=== PATIENT | male | born 1955 | race Caucasian/White ===

== ENCOUNTER → 2016-10-25 | Outpatient (CLI) | payer OTHER | LOC: LAB 16:28 | PROVIDERS: ATTEND Urology | DX: C61 Malignant neoplasm of prostate (principal) | CPT/HCPCS: 36415; 84153 ==

== ENCOUNTER → 2017-03-14 | Outpatient (CLI) | payer OTHER | LOC: LAB 13:55 | PROVIDERS: ATTEND Urology | DX: C61 Malignant neoplasm of prostate (principal) | CPT/HCPCS: 36415; 84153 ==

== ENCOUNTER 2017-10-06 21:37 | Inpatient (IN) ==
[2017-10-06] MEDS ORDERED: Sodium Chloride 0.9% 1,000 ML PRIMARY IV ONE (21:49)
[2017-10-06] MEDS ORDERED: MORPHINE SULFATE 4 MG/1 ML IVP ONE ×2 (21:49→23:42)
[2017-10-06] MEDS ORDERED: ONDANSETRON 4 MG/2 ML VIAL IVP ONE (21:49)
[2017-10-06] MEDS ORDERED: NORMAL SALINE 10 ML SYRINGE FLUSH IVP PRN (21:49)
--- NOTE | 2017-10-06 21:56 | EKG ---
[address] [address] Measurements Intervals [place] Rate: 77 P: 29 NV: 135 QRS: 27 QRSD: 100 T: 47 QT: 404 QTc: 436 Interpretive Statements SINUS RHYTHM NONSPECIFIC ST & T-WAVE ABNORMALITY No previous ECG available for comparison Electronically Signed On 10-07-17 09:47:43 MST by Chase Alvarez MD [email or web address]
[2017-10-06 22:15] LABS: BASOPHILS # (AUTO) 0.02 10*3/UL; BASOPHILS % (AUTO) 0.3 % (0-1); EOSINOPHILS % (AUTO) 2.9 % (0-8); Hematocrit [HCT] 43.1 % (42.0-52.0); Hemoglobin [HGB] 14.5 g/dL (14.0-18.0); LYMPHOCYTES # (AUTO) 2.04 10*3/uL; MEAN CORPUSCULAR HGB CONC 33.6 g/dL (33-37); MEAN CORPUSCULAR VOLUME 92.1 FL (80-90); MEAN PLATELET VOLUME 10.4 FL (7.4-12.2); MONOCYTES # (AUTO) 0.72 10*3/UL (0.3-0.8); MONOCYTES % (AUTO) 10.4 % (5-15); NEUTROPHILS # (AUTO) 3.93 10*3/UL; NEUTROPHILS % (AUTO) 56.8 % (50-80); RED BLOOD COUNT 4.68 10^6/uL (4.70-6.10)
[2017-10-06 22:17] LABS: PLATELET MORPHOLOGY COMMENT NORMAL MORPHOLOGY (NORM); RBC MORPHOLOGY COMMENT NORMAL MORPHOLOGY (NORM); WBC MORPHOLOGY COMMENT NORMAL MORPHOLOGY (NORM)
--- NOTE | 2017-10-06 22:18 | PDOC ---
General Adult HPI - General Chief Complaint: Abdomen Pain Stated Complaint: Severe ABD Pain Date Seen by Provider: 10/06/17 Time Seen by Provider: 21:40 Source: POSITIVE: Patient Exam Limitations: POSITIVE: No limitations Nurse's Notes Reviewed & Considered: Yes - History of Present Illness Initial Comment: The patient is a 61-year-old male who presents to the emergency room with abdominal pain. He states that he had onset of abdominal pain and pressure approximately 2 hours ago. He states that he feels like he has a large amount of gas however cannot relieve himself. The pain is primarily across his lower abdomen. He does not have any associated nausea or vomiting and reports a normal bowel movement earlier today. He denies any fevers or chills or urinary symptoms. He did break out into a sweat after arrival here in the ER. He states the pain does not really radiate through to his back and he denies any associated chest pain. He has had previous hernia repairs which were complicated by wound infection and he did have a wound VAC for a period of time. He still has his appendix and gallbladder. Have you received a tetanus shot in the past 10 years?: Unknown - Patient Home Medications Home Medications: Home Medications Allopurinol 1 tab ORAL QD #90 tab 03/30/17 Venlafaxine HCl [Venlafaxine Hcl Er] 1 cap PO DAILY #90 cap 03/30/17 - Patient Allergies Allergies/Adverse Reactions: Allergies 3 Allergy/AdvReac Type Severity Reaction Status Date / Time erythromycin base Allergy Intermediate HIVES Verified 10/06/17 21:40 aspirin AdvReac BLEEDING Verified 10/06/17 21:40 Past Medical History - heen HEENT History: Chipped or Loose Teeth, Other (please comment) Additional HEENT History: CHIPPED TEETH ALL OVER HIS MOUTH Cardiovascular History: Denies History Respiratory History: Pulmonary Embolism Additional Respiratory History: PE AFTER KNEE SX AGE 22 Gastrointestinal History: Denies History Genitourinary History: Denies History Endocrine History: Hypothyroidism Musculoskeletal History: Arthritis, Gout, Back Pain, Other (please comment) Prosthesis or Implant: No Additional Musculoskeletal History: NECK PAIN Neurological History: Other (please comment) Additional Neurological History: HEADACHES Blood Disorders: Denies History Psychiatric History: Depression, Anxiety Disorders History of Sexually Transmitted Diseases: No Male Reproductive History: Denies History Cancer History: Other (please comment) In Past Year Been Physically Harmed or Verbally Threatened: No History of MDRO: No History of Other Communicable Diseases: No Tobacco Use: Never Smoker Alcohol Use: Occasionally In the Past 12 Months, Have Used or Abuse Any Substance: None Previous Surgical History: Yes Type / Date of Surgery: PROSATECTOMY. ABD HERNIA. INGUINAL HERNIA. R KNEE SCOPE ACL. ARLETTE FUNDOPLICATION Anesthesia Reactions: No Malignant Hyperthermia: No Significant Family History: Heart disease, Vascular disease Additional Family History: MOTHER-VERICOSE VEINS. FATHER-STENTS Past Medical History Reviewed: Reviewed - No Changes ROS - Limitations ROS Limitations: No Limitations Constitution: DENIES: Chills, Fever Cardiovascular: DENIES: Chest Pain, Heart Palpitations Respiratory: DENIES: Shortness Of Breath Neurological: REPORTS: Denies Neuro Symptoms Gastrointestinal: REPORTS: Abdominal Pain. DENIES: Nausea, Vomitting, Diarrhea , Black Stools, Bloody Stools, Constipation Musculoskeletal: REPORTS: Denies MS Symptoms Genitourinary: REPORTS: Denies Symptoms Eyes: REPORTS: Denies Symptoms ENT: REPORTS: Denies Symptoms Skin: DENIES: Rash General Adult Exam - General Appearance General Appearance: POSITIVE: Alert, Cooperative, Other (At the time of my initial evaluation the patient is lying on the floor in the exam room with his legs propped up on a stool) - HEENT HEENT: POSITIVE: Head Inspection Nml, Eyes Inspection Nml, Ears Inspection Nml, Pharynx Inspect. Nml - Neck Neck: POSITIVE: Normal Inspection - Respiratory Respiratory: POSITIVE: No Respiratory Distress, Breath Sounds Normal - Cardiovascular Cardiovascular: POSITIVE: Regular Rate & Rhythm, No Murmur - Abdomen Abdomen: Soft: (All Quadrants), Normal Bowel Sounds: (All Quadrants), No Guarding: (All Quadrants), No Rebound: (All Quadrants) Additional Abdominal Details: His abdomen is distended, he does have tenderness across the lower abdomen without guarding or rebound tenderness, some tenderness in the epigastric region - Skin Skin: POSITIVE: Normal Color, No Rash, Diaphoresis - Extremities Extremity: Normal ROM: (All Extremities), Normal Inspection: (All Extremities) - Neurological / Psychological Neurological: POSITIVE: 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 He also has a small fluid collection in the anterior abdominal wall near the umbilicus Lab Results Reviewed by Me: Yes CBC and BMP: 10/06/17 22:05 10/06/17 22:05 EKG Interpretation:: POSITIVE: Normal Sinus Rhythm, Normal Rate, Normal QRS, Normal ST/T - Patient's Progress MDM / ED Course: The patient appeared fairly uncomfortable on arrival. An IV was established and the patient was given morphine and Zofran for pain. In addition EKG was done showing normal sinus rhythm with no acute ST segment or T-wave changes. Initially he did have some pain relief with the morphine. After CT his pain returned and he received a second dose of morphine 4 mg IV. He really did not get much pain relief with that and received Dilaudid 1 mg IV. His lab work reveals a normal white count and lab work is otherwise essentially unremarkable. CT scan of the abdomen and pelvis does reveal dilated small bowel with transition point in the anterior abdomen right of midline concerning for partial small bowel obstruction per radiologist. Findings were discussed with the patient and his as well as Dr. Dubon. Dr. Dubon recommended NG tube placement and admission. Dr. Andrade was subsequently contacted and he has agreed to admit the patient with surgical consultation per Dr. Dubon. These findings and recommendations were discussed with the patient and his . - Consult Counseled: POSITIVE: Patient, Family, RE: Lab Results, RE: Radiology Results, RE : DX, RE: Need for F/U Patient Care Time - Estimated PCT Patient Care Time (In Minutes): 40 Vital Signs - Recent Vital Signs Vital Signs: Vital Signs (Last 8 hours) Temp Pulse Resp BP Pulse Ox 10/06/17 21:38 97.2 F 81 16 148/77 92 - VS Reviewed Vital Signs Reviewed: Yes Discharge Clinical Impression: Small bowel obstruction Condition: Stable Follow Up With: PEE KENDALL [Primary Care Provider] - Date Decision to Admit to Inpatient: 10/07/17 Time Decision to Admit to Inpatient: 00:30
[2017-10-06 22:27] LABS: BLOOD UREA NITROGEN 19 mg/dL (7-22); BUN/CREATININE RATIO 17.27 (6-20); LIPASE 50 IU/L (23-300); SERUM ALBUMIN 4.2 g/dL (3.5-4.8)
--- NOTE | 2017-10-07 00:04 | DI ---
EXAM: CT Abdomen and Pelvis With Intravenous Contrast CLINICAL HISTORY: Abdominal pain: TECHNIQUE: Axial computed tomography images of the abdomen and pelvis with intravenous contrast. Coronal and sagittal reformatted images were created and reviewed. COMPARISON: No relevant prior studies available. FINDINGS: Lower thorax: No acute findings. ABDOMEN: Liver: Hepatic steatosis. Gallbladder and bile ducts: Unremarkable. No calcified stones. No ductal dilation. Pancreas: Fatty infiltration of the pancreas. No ductal dilation. Spleen: Unremarkable. No splenomegaly. Adrenals: Unremarkable. No mass. Kidneys and ureters: Subtle cortical hypodensities of the left kidney may represent small cysts, too small to characterize.. No solid mass. No hydronephrosis. Stomach and bowel: Surgical sutures adjacent to the proximal stomach. No evidence for regional inflammation. Diffuse loops of dilated small bowel up to a caliber of 3.8 cm, with scattered fluid levels and intraluminal feculent material indicating a decreased motility. There is a focal transition within the anterior abdomen right of midline, likely indicating a partial obstructing process. Colonic diverticulosis. No evidence for acute diverticulitis. Appendix: No findings to suggest acute appendicitis. PELVIS: Bladder: Unremarkable. No mass. Reproductive: Unremarkable as visualized. ABDOMEN and PELVIS: Intraperitoneal space: No evidence for significant free fluid or air. Ill-defined lobulated attenuation structure which may represent a small fluid collection in the anterior abdominal cavity, along the inner wall adjacent to the umbilicus, series 2 image 69. This measures a length of 3.2 cm and may be a small seroma. Bones/joints: Mild degenerative disc disease changes. No acute fracture. No dislocation. Soft tissues: Unremarkable. Vasculature: Unremarkable. No abdominal aortic aneurysm. Lymph nodes: Unremarkable. No enlarged lymph nodes. IMPRESSION: 1. Findings concerning for likely partial small bowel obstruction, transition within the anterior most abdominal cavity right of midline. 2. Small ill-defined low-attenuation structure which may be a small fluid collection adjacent to the internal surface of the anterior abdominal wall adjacent to the umbilicus measuring 3.2 cm length. This may represent a small seroma. No significant adjacent reactive changes are seen. 3. Other nonacute findings as above.
[2017-10-07] MEDS ORDERED: HYDROmorphone 2 MG/1 ML IVP ONE (00:15)
[2017-10-07 00:23] LABS: BILIRUBIN,URINE NEGATIVE (NEG); CLARITY,URINE CLEAR (CLEAR); COLOR,URINE YELLOW (Y); GLUCOSE, URINE (UA) NEGATIVE (NEG); OCCULT BLOOD,URINE NEGATIVE (NEG); PROTEIN,URINE NEGATIVE (NEG); URINE SAMPLE TYPE CLEAN CATCH URINE; UROBILINOGEN,URINE 0.2 EU/dL (0.2)
[2017-10-07] MEDS ORDERED: ACETAMINOPHEN 325 MG TABLET PO PRN (01:48)
[2017-10-07] MEDS ORDERED: ONDANSETRON 4 MG/2 ML VIAL IVP PRN (01:48)
[2017-10-07] MEDS ORDERED: NORMAL SALINE 10 ML SYRINGE FLUSH IVP PRN ×3 (01:48→11:03)
[2017-10-07] MEDS ORDERED: LIDOCAINE W/ SODIUM BICARB 0.5 ML SYR SUBD PRN ×2 (01:48→07:56)
[2017-10-07] MEDS ORDERED: DOCUSATE 100 MG CAPSULE PO PRN (01:48)
[2017-10-07] MEDS ORDERED: CALCIUM CARBONATE 500 MG (TUMS) CHEWABLE TABLET PO PRN (01:48)
[2017-10-07] MEDS: Sodium Chloride 0.9% 1,000 ML PRIMARY IV SCH ×2 (01:54→14:41)
[2017-10-07] MEDS: HYDROmorphone 2 MG/1 ML IVP PRN ×7 (02:13→12:59)
[2017-10-07] MEDS: HEPARIN 5000 UNIT/1 ML SUBCUT SCH ×3 (02:20→18:45)
[2017-10-07] MEDS ORDERED: Lactated Ringers 1,000 ML PRIMARY IV ONE ×2 (08:00→10:17)
--- NOTE | 2017-10-07 08:02 | CONSULT ---
Consult Note - Consult Consult Date: 10/07/17 Reason for Consult: PreOp Consulation : General Surgery Requesting Physician: Dr. Connell Primary Care Provider: Dale Gallegos MD - History of Present Illness History of Present Illness: This is a 61-year-old male who comes in with acute abdominal pain. This started approximately 7:00 last night on October 06. He was doing fine up until that point. He also developed nausea and vomiting. Patient is previous surgery was a complex ventral hernia. Paralytic put piece of mesh and. Mesh did not adhere and he had a wound problems that needed wound VAC. This is done 2 years ago. According to him and his he was doing fine up until yesterday. He has she went to work. Patient had a CT scan that shows a small bowel obstruction is thought be partial. Patient's laboratory values are completely normal last night. Talking to him and his though he continued to get worse today. His abdomen is more distended and firm today. Past Medical History Tobacco Use: Never Smoker In the Past 12 Months, Have Used or Abuse Any of the Following Substance: None Medication / Allergies Home Medications: Home Medications Medication Instructions Recorded Confirmed Type Allopurinol 1 tab ORAL QD #90 tab 03/30/17 10/06/17 Rx Venlafaxine HCl [Venlafaxine Hcl 1 cap PO DAILY #90 cap 03/30/17 10/06/17 Rx Er] Allergies/Adverse Reactions: Allergies 3 Allergy/AdvReac Type Severity Reaction Status Date / Time erythromycin base Allergy Intermediate HIVES Verified 10/06/17 21:40 aspirin AdvReac BLEEDING Verified 10/06/17 21:40 Results - Labs CBC and BMP: 10/06/17 22:05 10/06/17 22:05 Exam - Vitals Vital Signs: Vital Signs Temperature 97.8 F Temperature Source Temporal Artery Scan Pulse Rate [Pulse Oximeter] 96 Respiratory Rate 16 Blood Pressure [Left Arm] 148/99 Pulse Ox 99 Oxygen Flow Rate 2 Oxygen Delivery Method Nasal Cannula Height 6 ft 1 in Weight 251 lb 8 oz - General General Appearance: Cooperative, Mild Distress - Head Head Exam: Normal Inspection - Eye Eye Exam: POSITIVE: PERRL, EOMI - Respiratory Respiratory Exam: POSITIVE: Clear to Auscultation - Bilaterally - Cardiovascular Cardiovascular Exam: POSITIVE: RRR - GI/Abdominal GI/Abdominal Exam: POSITIVE: Firm, Distended Additional GI/Abdominal Exam Details: Abdominal pain generalized. Assessment and Plan - Patient Problems (1) Small bowel obstruction Current Visit: Yes Status: Acute Code(s): K56.609 - Unspecified intestinal obstruction, unspecified as to partial versus complete obstruction - Assessment / Plan Additional Assessment/Plan Details: Due the fact of the patient's is getting worse over seven-hour. I think he needs disclose surgery for an exploratory laparotomy lysis of adhesion post removal small bowel and possible mesh removal. Risks benefits surgery explained to him and his . They understand this. This be taken at the first available date time today.
[2017-10-07] MEDS ORDERED: fentaNYL Inj 250 MCG/5 ML VIAL ONE ×2 (08:28→10:18)
[2017-10-07] MEDS ORDERED: MIDAZOLAM 5 MG/1 ML ONE (08:28)
[2017-10-07] MEDS ORDERED: LIDOCAINE MPF 2% - 5 ML (20 MG/1 ML) ONE (08:28)
[2017-10-07] MEDS ORDERED: PROPOFOL 10 MG/1 ML (200 MG/20 ML) VIAL IV ONE (08:28)
[2017-10-07] MEDS ORDERED: ROCURONIUM 10 MG/1 ML - 5 ML VIAL IVP ONE (08:29)
[2017-10-07] MEDS ORDERED: SUCCINYLCHOLINE CHLORIDE 20 MG/1 ML - 10 ML ONE (08:29)
[2017-10-07] MEDS ORDERED: LIDOCAINE W/ SODIUM BICARB 0.5 ML SYR ONE (08:29)
[2017-10-07] MEDS ORDERED: Sodium Chloride 0.9% 100 ML IV ONE (09:05)
[2017-10-07] MEDS ORDERED: DEXAMETHASONE PF 10 MG/1 ML VIAL ONE (09:28)
[2017-10-07] MEDS ORDERED: ONDANSETRON 4 MG/2 ML VIAL ONE (09:28)
[2017-10-07] MEDS ORDERED: BUPIVACAINE 0.25% W/ EPI - 10 ML VIAL ONE (09:54)
--- NOTE | 2017-10-07 10:05 | PDOC ---
HPI - History of Present Illness History of Present Illness: Is a very nice 61-year-old gentleman who comes in the hospital overnight for small bowel obstruction Dr. marva Harvey was consult consulted by the ER hospitalist service was asked to admit the patient. Apparently had abdominal surgery 2 years ago started having abdominal pain CT scan revealed small bowel obstruction. Patient continued to worsen and is now in the OR he is out now patient is speaking to me in full sentences much better after he received Narcan he does have +1 edema I recommended to his she probably needs a echo he might be having some right heart failure and pulmonary hypertension I will order troponins and the BMP Past Medical History Tobacco Use: Never Smoker In the Past 12 Months, Have Used or Abuse Any of the Following Substance: None Medication / Allergies Home Medications: Home Medications Medication Instructions Recorded Confirmed Type Allopurinol 1 tab ORAL QD #90 tab 03/30/17 10/06/17 Rx Venlafaxine HCl [Venlafaxine Hcl 1 cap PO DAILY #90 cap 03/30/17 10/06/17 Rx Er] Allergies/Adverse Reactions: Allergies 3 Allergy/AdvReac Type Severity Reaction Status Date / Time erythromycin base Allergy Intermediate HIVES Verified 10/06/17 21:40 aspirin AdvReac BLEEDING Verified 10/06/17 21:40 Exam - Vitals Vital Signs: Vital Signs Temperature 97.3 F Temperature Source Temporal Artery Scan Pulse Rate [Pulse Oximeter] 96 Pulse Rate 106 Respiratory Rate 14 Blood Pressure [Left Arm] 148/99 Blood Pressure 117/99 Pulse Ox 96 Oxygen Flow Rate 4L Oxygen Delivery Method Nasal Cannula Height 6 ft 1 in Weight 251 lb 8 oz - General General Appearance: No Acute Distress, Cooperative - Head Head Exam: Normal Inspection, Normocephalic, Atraumatic - Neck Neck Exam: Normal Inspection, Full ROM, No Tenderness, No Lymphadenopathy, No Thyromegaly, JVP is not Raised - Respiratory Respiratory Exam: POSITIVE: Decreased Breath Sounds, Crackles (On the left side more than the right) - Cardiovascular Cardiovascular Exam: POSITIVE: RRR, No Murmur, No Clicks, No Gallops, No Rubs, PMI Non-Displaced - GI/Abdominal GI/Abdominal Exam: POSITIVE: Normal Bowel Sounds, Non Tender, Non Distended, Soft, No Masses, No Hepatomegaly, No Splenomegaly, No Organomegaly - Extremities Extremities Exam: POSITIVE: +1 Edema - Neurological Neurological Exam: POSITIVE: Alert, Oriented x 3, Reflexes Normal, Normal Gait, CN II-XII Intact, No Facial Droop, Speech Intact / Clear, Moves All Extremities Equally, No Fasciculations, No Clonus Results - Labs CBC and BMP: 10/06/17 22:05 10/06/17 22:05 Assessment and Plan - Patient Problems (1) Small bowel obstruction Current Visit: Yes Comment: Defer to Dr. marva Harvey general surgery patient in the OR at present time Code(s): K56.609 - Unspecified intestinal obstruction, unspecified as to partial versus complete obstruction (2) Depression Current Visit: Yes Status: Acute Comment: Patient on antidepressant can resume as soon as able to take oral no other medical issues Code(s): F32.9 - Major depressive disorder, single episode, unspecified (3) Respiratory distress Current Visit: Yes Status: Acute Comment: Respiratory acidosis on VBG BiPAP was started most likely not working well I believe patient has a sleep apnea baseline received narcotics postop I will give Narcan reverse discussed with nursing and this seems to have worked very well patient is now awake and well Code(s): R06.00 - Dyspnea, unspecified (4) Hypertension Current Visit: Yes Status: Acute Comment: 0.1 clonidine patch Code(s): I10 - Essential (primary) hypertension (5) Edema Current Visit: Yes Status: Acute Comment: Most likely patient with long-standing sleep apnea might have developed some pulmonary hypertension and right heart failure will need an echo as an outpatient I will order a BMP for now is being diuresed with Lasix which is working Code(s): R60.9 - Edema, unspecified
[2017-10-07] MEDS ORDERED: KETOROLAC 30 MG/1 ML VIAL ONE ×3 (10:22→13:37)
[2017-10-07] MEDS ORDERED: NEOSTIGMINE 1 MG/1 ML - 10 ML ONE (10:24)
[2017-10-07] MEDS ORDERED: GLYCOPYRROLATE 0.2 MG/1 ML VIAL ONE (10:24)
[2017-10-07] MEDS ORDERED: Sodium Chloride 0.9% vial 20 ML ONE ×2 (10:30→10:32)
[2017-10-07] MEDS ORDERED: BUPivacaine Liposome/PF (Exparel) Inj 20ml vial INFIL ONE (10:30)
--- NOTE | 2017-10-07 10:49 | GEN.OPNOTE ---
Operative Note Surgery Date: 10/07/17 Preoperative Diagnosis: Small bowel obstruction Postoperative Diagnosis: Small bowel obstruction secondary to adhesions. Mesh intra-abdominally Procedure: Lysis of adhesions. Removal of foreign body Surgeon: Feliberto Dubon MD Merchant Tailor: Rubén Duran MD Anesthesia Provider: Mik Dawson CRNA Anesthesia Type: General Estimated Blood Loss (mL): 25 Fluids: Lactated Ringer's please see anesthesia notes in EMR. 2 g of Mefoxin Pathology: Mesh sent Indications: 61-year-old gentleman developed acute abdominal pain. CT scan was consistent with of small bowel obstruction. Patient's physical exam to return for the worse with increased abdominal pain and tense distended abdomen is felt best taken to surgery Findings: Patient has adhesions of omentum up to the piece of mesh. The mesh and water up until a ball and had a central seroma/old hematoma. Patient had adhesions of the small bowel up to the abdominal wall just above the umbilical hernia Umbilical hernia Operative Summary: Patient is brought in the operating room. Placed supine position. Given general trach anesthesia. Prepped draped sterile fashion. Timeout performed per protocols. Initially I made the incision the right upper midline near his old hernia site. Hemostased electrocautery dissection Talon Ks tissue left cautery linea alba open of left cautery. I then bluntly entered the. No cavity then opened the perineum electrocautery. Patient had adhesions of omentum up to what appeared to be an old hernia mesh repair. Adhesions of omentum were taken down with sharp dissection and with left cautery. I found that there was a loop of small bowel that was adherent to the abdominal wall. This is in the midline near his umbilical hernia. I had extended my incision inferiorly below the umbilicus to get up proper exposure. I then sharply took down the adhesions. At this point we found dilated bowel above this attractive below. Cannot find any other source of bowel obstruction. There is some adhesions at the terminal ileum to the post anterior abdominal wall that were taken down left cautery. We then ran the entire bowel from the terminal ileum to the ligament of Treitz. No other pathology could be identified. Return the bowel edges anatomical position. Using electrocautery we then remove the old mesh. We then closed the abdominal wall fascia with 0 Prolene continuous running suture. Infiltrated 20 mL of Exoprel diluted out to 60 mL into the subcutaneous tissue postoperative pain control. Closed the skin with skin manuel. Counts were correct. Patient transferred recovery room in stable condition. Sterile dressings were applied Patient Problems - Patient Problem List (1) Small bowel obstruction Current Visit: Yes Status: Acute Code(s): K56.609 - Unspecified intestinal obstruction, unspecified as to partial versus complete obstruction Category: Medical Procedure Codes - Surgical Procedures Primary Surgical Procedure: 47023 : Enterolysis Secondary Surgical Procedure: Other CPT Code(s) (Removal of peritoneal foreign body from the peritoneal cavity. Its [address])
[2017-10-07] MEDS ORDERED: LIDOCAINE HCL 2 % 10 ML JELLY URO-JECT TOPICAL PRN (11:03)
[2017-10-07] MEDS ORDERED: Prochlorperazine Edisylate Inj 10mg/2ml vial IVP PRN (11:03)
--- NOTE | 2017-10-07 11:05 | CRNA.PROGR ---
Anesthesia Recovery Phase I - Post Anesthesia Evaluation Patient's Condition on Arrival in Phase I: Fair Patient's Condition on Arrival in Phase II: Stable Pain Level: 0
--- NOTE | 2017-10-07 11:06 | CRNA.PROGR ---
Anesthesia Time - - Start date: 10/07/17 End date: 10/07/17 - Procedure/Recovery Time Anesthesia : Time In: 09:38 Anesthesia : Time Out: 11:00 Anesthesia : Total Time: 82 - Total Anesthesia Time Total Anesthesia Time (minutes): 82 - Other Weight: 114.078 kg Height: 6 ft 1 in Body Mass Index (BMI): 33.1 Physical Status: P3 Anesthesia Type: General Anesthesia : ET
[2017-10-07] MEDS: LABETALOL 20 MG/4 ML (5 MG/1 ML) SYRINGE IVP PRN ×3 (11:09→11:16)
[2017-10-07] MEDS ORDERED: LABETALOL 20 MG/4 ML (5 MG/1 ML) SYRINGE ONE (11:12)
[2017-10-07] MEDS ORDERED: HYDRALAZINE 20 MG/1 ML IVP PRN (11:21)
[2017-10-07] MEDS ORDERED: HYDROmorphone 2 MG/1 ML ONE (11:27)
[2017-10-07] MEDS: Lactated Ringers 1,000 ML PRIMARY IV SCH ×3 (12:55→15:20)
[2017-10-07] MEDS: VENLAFAXINE XR 75 MG CAP PO SCH (12:56)
[2017-10-07] MEDS ORDERED: KETAMINE 100 MG/1 ML - 5 ML ONE (13:15)
[2017-10-07] MEDS ORDERED: [UNRECOGNIZED DRUG - OTHER] TRANSDERM SCH (15:00)
[2017-10-07] MEDS ORDERED: CLONIDINE TRANSDERM SCH (15:00)
[2017-10-07 15:44] LABS: VENOUS PH 7.23 (7.32-7.42)
[2017-10-07] MEDS ORDERED: FUROSEMIDE 10 MG/1 ML - 4 ML IVP ONE (16:09)
[2017-10-07] MEDS ORDERED: NALOXONE 0.4 MG/1 ML VIAL ONE (16:10)
[2017-10-07] MEDS ORDERED: FUROSEMIDE 10 MG/1 ML - 4 ML IV ONE (16:15)
[2017-10-07] MEDS ORDERED: NALOXONE 0.4 MG/1 ML VIAL IVP ONE (16:15)
[2017-10-07 20:54] LABS: VENOUS PH 7.38 (7.32-7.42)
[2017-10-08] MEDS: HEPARIN 5000 UNIT/1 ML SUBCUT SCH ×3 (04:12→18:33)
[2017-10-08 05:49] LABS: VENOUS PH 7.478 (7.32-7.42)
[2017-10-08 06:15] LABS: BASOPHILS # (AUTO) 0.01 10*3/UL; BASOPHILS % (AUTO) 0.1 % (0-1); EOSINOPHILS # (AUTO) 0.05 10*3/UL; EOSINOPHILS % (AUTO) 0.6 % (0-8); Hematocrit [HCT] 42.1 % (42.0-52.0); LYMPHOCYTES # (AUTO) 0.86 10*3/uL; MEAN CORPUSCULAR HEMOGLOBIN 31.8 PG (27-31); MEAN CORPUSCULAR HGB CONC 33.3 g/dL (33-37); MEAN CORPUSCULAR VOLUME 95.7 FL (80-90); MEAN PLATELET VOLUME 11.6 FL (7.4-12.2); MONOCYTES # (AUTO) 0.78 10*3/UL (0.3-0.8); MONOCYTES % (AUTO) 9.4 % (5-15); NEUTROPHILS # (AUTO) 6.58 10*3/UL; NEUTROPHILS % (AUTO) 79.4 % (50-80)
[2017-10-08 06:25] LABS: BLOOD UREA NITROGEN 27 mg/dL (7-22)
[2017-10-08 06:39] LABS: PLATELET MORPHOLOGY COMMENT NORMAL MORPHOLOGY (NORM); RBC MORPHOLOGY COMMENT NORMAL MORPHOLOGY (NORM); WBC MORPHOLOGY COMMENT NORMAL MORPHOLOGY (NORM)
[2017-10-08] MEDS ORDERED: FUROSEMIDE 10 MG/1 ML - 2 ML VIAL IVP SCH (07:00)
[2017-10-08] MEDS: VENLAFAXINE XR 75 MG CAP PO SCH (08:56)
--- NOTE | 2017-10-08 11:29 | CRNA.PROGR ---
Anesthesia Note - Progress Notes Anesthesia Progress Note: Post OP Anesthesia Note Pt is sitting up in bed, Alert and oriented. He remains on NPO status for now. He does state that his pain is well under control. He has not been up to the restroom as the bowie catheter is still in place. Current VS are stable. Vital Signs (Last 8 hours) Temp Pulse Resp BP Pulse Ox 10/08/17 07:54 97.7 F 96 16 137/80 96 10/08/17 07:00 96 10/08/17 04:27 97.8 F 98 20 131/80 95 10/08/17 04:00 96
[2017-10-08] MEDS ORDERED: HYDROmorphone 2 MG/1 ML IVP PRN (11:34)
[2017-10-08] MEDS ORDERED: PHENOL/SODIUM PHENOLATE 177 ML SPRAY PO PRN (12:07)
--- NOTE | 2017-10-08 12:27 | PDOC(PROG) ---
Subjective Post Op Day: 1 Pain Management: exparel & tylenol Hopkins Catheter: Yes Flatus: No Diet: NPO Ambulating: No Date and Time of Service: 10/08/2017 12 noon Interval History: Pain is well-controlled. No specific complaints except for his NG tube. No nausea or vomiting. No flatus or bowel movement. He needs to ambulate. Discussed the surgical findings with the patient and his and family. Objective : Data - Labs CBC and BMP: 10/08/17 05:30 10/08/17 05:30 - Vital Signs Vital Signs and I&O: Vital Signs - Last Taken Temperature 97.7 F 10/08/17 07:54 Pulse Rate 96 10/08/17 07:54 Respiratory Rate 16 10/08/17 07:54 Blood Pressure 137/80 10/08/17 07:54 Pulse Ox 96 10/08/17 07:54 Intake and Output (24hr x 4 totals) 10/06/17 10/07/17 10/08/17 10/09/17 05:59 05:59 05:59 05:59 Intake Total 333 / 1332 1999 / 1999 Output Total 325 / 325 1535 / 1535 Balance 8 / 1007 465 / 465 Objective : Exam - General General Appearance: No Acute Distress, Cooperative - Respiratory Respiratory Exam: Clear to Auscultation - Bilaterally, Breathing Non Labored - Cardiovascular Cardiovascular Exam: RRR, No Murmur - GI/Abdominal GI/Abdominal Exam: Distended Additional GI/Abdominal Exam Details: The abdomen is full. Essentially no bowel tones. The dressing is intact. Some incisional tenderness only. - Neurological Neurological Exam: Alert, Oriented x 3 - Psychiatric Psychiatric Exam: Normal Affect, Normal Mood Assessment and Plan - Patient Problems (1) Status post exploratory laparotomy Current Visit: Yes Status: Acute Priority: High Onset Date: 10/07/17 Comment: Surgically stable. Multiple orders changed. Patient needs IV fluids. I discontinued the Lasix. We'll continue NG tube and Hopkins catheter at least until tomorrow. We'll start the patient on some ice chips. I discussed everything with the patient, his family, and the hospitalist. Check a.m. labs. Continue postoperative care. Code(s): Z98.890 - Other specified postprocedural states (2) Small bowel obstruction due to adhesions Current Visit: Yes Status: Acute Priority: High Onset Date: ~10/06/17 Comment: Surgically corrected. Code(s): K56.50 - Intestinal adhesions [bands], unspecified as to partial versus complete obstruction
[2017-10-08] MEDS: D5-1/2NS + 20mEq KCL 1,000 ML PRIMARY IV SCH ×2 (13:21→22:38)
--- NOTE | 2017-10-08 14:01 | PDOC(PROG) ---
Date and Time of Service: 10/08/2017, 1353 Interval History: No chest pain, shortness breath, nausea or vomiting. Has productive phlegm cough, green in color. Is wanting to ambulate in the halls a little more. Objective : Data - Labs CBC and BMP: 10/08/17 05:30 10/08/17 05:30 Additional Lab Results: 10/08/17 10/08/17 05:30 05:44 VBG pH 7.478 H VBG pCO2 32 L VBG HCO3 24 Calcium 8.4 L Objective : Exam - General General Appearance: No Acute Distress, Cooperative Additional General Exam Details: Vital Signs (24 hrs) Temp Pulse Resp BP Pulse Ox 10/08/17 13:00 96.9 F 95 16 146/84 92 10/08/17 07:54 97.7 F 96 16 137/80 96 10/08/17 07:00 96 10/08/17 04:27 97.8 F 98 20 131/80 95 10/08/17 04:00 96 10/08/17 01:00 105 H 16 146/74 94 10/07/17 20:23 98.5 F 120 H 16 146/85 93 10/07/17 18:45 122 H 10/07/17 16:45 176/111 10/07/17 15:45 162/114 10/07/17 15:30 98.4 F 117 H 16 146/118 86 10/07/17 14:30 98 F 115 H 6 L 146/127 96 10/07/17 14:00 98.4 F 115 H 6 L 142/124 91 - Head Head Exam: Normal Inspection, Normocephalic, Atraumatic - Eye Eye Exam: No Scleral Icterus - ENT ENT Exam: Mucous Membranes Moist - Respiratory Respiratory Exam: Clear to Auscultation - Bilaterally, Breathing Non Labored, Decreased Breath Sounds (In the bases bilaterally, splinting due to abdominal pain.) Additional Respiratory Exam Details: Green phlegm cough - Cardiovascular Cardiovascular Exam: RRR, No Murmur, No Clicks, No Gallops, No Rubs, No JVD Additional Cardiovascular Details: When I listen to the patient he was not tachycardic. - GI/Abdominal GI/Abdominal Exam: Non Tender, Non Distended, Soft Additional GI/Abdominal Exam Details: Benign incision is dressed, dressing is dry and intact. - Extremities Extremities Exam: No Clubbing Present, No Edema Present, No Cyanosis Present - Neurological Neurological Exam: Alert, Oriented x 3, Normal Gait, No Facial Droop, Speech Intact / Clear, Moves All Extremities Equally Assessment and Plan - Patient Problems (1) Small bowel obstruction Current Visit: Yes Comment: Status post exploratory laparotomy with adhesional lysis Code(s): K56.609 - Unspecified intestinal obstruction, unspecified as to partial versus complete obstruction (2) Respiratory distress Current Visit: Yes Status: Acute Code(s): R06.00 - Dyspnea, unspecified (3) Hypertension Current Visit: Yes Status: Acute Code(s): I10 - Essential (primary) hypertension (4) Edema Current Visit: Yes Status: Acute Code(s): R60.9 - Edema, unspecified (5) Depression Current Visit: Yes Status: Acute Code(s): F32.9 - Major depressive disorder , single episode, unspecified Qualifiers: Depression Type: other depression Qualified Code(s): F32.89 - Other specified depressive episodes (6) Gouty arthropathy Current Visit: Yes Status: Acute Code(s): M10.9 - Gout, unspecified - Assessment / Plan Additional Assessment/Plan Details: Continue ambulatory efforts to have the patient move in the hallways. I agree with IV fluids. I agree with Tylenol for pain IV, hopefully can limit Dilaudid. Labs in a.m. Continue incentive spirometer.
[2017-10-08] MEDS: Acetaminophen 1000mg Inj 1,000 MG/100 ML VIAL IV PRN (20:48)
[2017-10-09] MEDS: HEPARIN 5000 UNIT/1 ML SUBCUT SCH ×3 (02:04→19:02)
[2017-10-09 05:10] LABS: BASOPHILS # (AUTO) 0.01 10*3/UL; BASOPHILS % (AUTO) 0.2 % (0-1); EOSINOPHILS # (AUTO) 0.24 10*3/UL; EOSINOPHILS % (AUTO) 4.3 % (0-8); Hematocrit [HCT] 42.3 % (42.0-52.0); Hemoglobin [HGB] 13.4 g/dL (14.0-18.0); LYMPHOCYTES # (AUTO) 1.25 10*3/uL; MEAN CORPUSCULAR HEMOGLOBIN 30.8 PG (27-31); MEAN CORPUSCULAR HGB CONC 31.7 g/dL (33-37); MEAN CORPUSCULAR VOLUME 97.2 FL (80-90); MEAN PLATELET VOLUME 11.2 FL (7.4-12.2); MONOCYTES # (AUTO) 0.66 10*3/UL (0.3-0.8); MONOCYTES % (AUTO) 11.7 % (5-15); NEUTROPHILS # (AUTO) 3.45 10*3/UL; NEUTROPHILS % (AUTO) 61.4 % (50-80); RED BLOOD COUNT 4.35 10^6/uL (4.70-6.10)
[2017-10-09 05:11] LABS: PLATELET MORPHOLOGY COMMENT NORMAL MORPHOLOGY (NORM); RBC MORPHOLOGY COMMENT NORMAL MORPHOLOGY (NORM); WBC MORPHOLOGY COMMENT NORMAL MORPHOLOGY (NORM)
[2017-10-09 05:23] LABS: BLOOD UREA NITROGEN 21 mg/dL (7-22); BUN/CREATININE RATIO 23.33 (6-20)
[2017-10-09] MEDS: VENLAFAXINE XR 75 MG CAP PO SCH (08:53)
[2017-10-09] MEDS: D5-1/2NS + 20mEq KCL 1,000 ML PRIMARY IV SCH ×2 (08:54→19:12)
[2017-10-09] MEDS: Acetaminophen 1000mg Inj 1,000 MG/100 ML VIAL IV PRN (12:56)
[2017-10-09] MEDS ORDERED: Pantoprazole Inj 40 MG in Normal Saline Flush 10 ML IVP SCH ×2 (13:00→21:00)
--- NOTE | 2017-10-09 13:24 | PDOC(PROG) ---
Subjective Post Op Day: 2 Pain Management: Exparel and tylenol Hopkins Catheter: Yes Flatus: No Diet: NPO (Few ice chips.) Ambulating: Yes Date and Time of Service: 10/09/2017 1 PM Interval History: Feeling some abdominal gurgling. No flatus or bowel movement. No nausea or vomiting. NG tube is bothering him a lot. The Hopkins catheter is also. No significant abdominal pain. Abdomen appears a little distended. Family and he reports this is pretty normal for his abdomen. He is ambulating. Objective : Data - Labs CBC and BMP: 10/09/17 04:20 10/09/17 04:20 - Vital Signs Vital Signs and I&O: Vital Signs - Last Taken Temperature 98.1 F 10/09/17 11:54 Pulse Rate 98 10/09/17 11:54 Respiratory Rate 14 10/09/17 11:54 Blood Pressure 155/91 10/09/17 11:54 Pulse Ox 94 10/09/17 11:54 Intake and Output (24hr x 4 totals) 10/07/17 10/08/17 10/09/17 10/10/17 05:59 05:59 05:59 05:59 Intake Total 333 / 1332 1999 / 1999 1508 / 1508 165 / 165 Output Total 325 / 325 1535 / 1535 1050 / 1050 300 / 300 Balance 8 / 1007 465 / 465 458 / 458 -135 / -135 Objective : Exam - General General Appearance: Cooperative, Mild Distress - Respiratory Respiratory Exam: Clear to Auscultation - Bilaterally, Breathing Non Labored - Cardiovascular Cardiovascular Exam: RRR, No Murmur - GI/Abdominal GI/Abdominal Exam: Soft, Hypoactive Bowel Sounds (Minimal bowel tones.) Additional GI/Abdominal Exam Details: Abdomen is full but soft. There are a few bowel tones today but clearly hypoactive. The dressing shows some dried blood in the lower portion. Incisional pain predominantly on exam. - Rectal Rectal Exam: Deferred - Neurological Neurological Exam: Alert, Oriented x 3 - Psychiatric Psychiatric Exam: Normal Affect, Normal Mood Assessment and Plan - Patient Problems (1) Status post exploratory laparotomy Current Visit: Yes Status: Acute Priority: High Onset Date: 10/07/17 Comment: Surgically stable. Await return of GI function. We'll discontinue the NG tube and Hopkins. Check a.m. labs. We'll start Reglan to try to stimulate the bowels. Code(s): Z98.890 - Other specified postprocedural states (2) Small bowel obstruction due to adhesions Current Visit: Yes Status: Acute Priority: High Onset Date: ~10/06/17 Comment: Surgically corrected. Code(s): K56.50 - Intestinal adhesions [bands], unspecified as to partial versus complete obstruction
[2017-10-09] MEDS: Metoclopramide Inj 10 MG/2 ML VIAL IVP SCH ×2 (14:39→19:11)
[2017-10-09] MEDS ORDERED: Pantoprazole Inj 40 MG in Normal Saline Flush 10 ML IVP ONE (14:45)
--- NOTE | 2017-10-09 15:39 | PDOC(PROG) ---
Date and Time of Service: 10/09/2016, 1536 Interval History: no CP, no SOB, abdominal pain is controlled no nausea or vomiting ambulating well Objective : Data - Labs CBC and BMP: 10/09/17 04:20 10/09/17 04:20 Objective : Exam - General General Appearance: No Acute Distress, Cooperative Additional General Exam Details: Vital Signs (24 hrs) Temp Pulse Resp BP Pulse Ox 10/09/17 11:54 98.1 F 98 14 155/91 94 10/09/17 07:02 97.9 F 94 12 155/89 91 10/09/17 04:58 94 10/09/17 04:47 97.6 F 85 20 149/91 96 10/09/17 00:56 98.3 F 85 18 161/91 95 10/08/17 20:35 98.5 F 91 20 147/88 96 10/08/17 19:00 89 10/08/17 16:40 97.6 F 89 16 143/88 93 - Head Head Exam: Normal Inspection, Normocephalic, Atraumatic - Eye Eye Exam: No Scleral Icterus - Respiratory Respiratory Exam: Clear to Auscultation - Bilaterally, Breathing Non Labored - Cardiovascular Cardiovascular Exam: RRR, No Murmur, No Clicks, No Gallops, No Rubs, No JVD - GI/Abdominal GI/Abdominal Exam: Non Tender, Non Distended, Soft, Hypoactive Bowel Sounds - Extremities Extremities Exam: No Clubbing Present, No Edema Present, No Cyanosis Present - Neurological Neurological Exam: Alert, Oriented x 3, No Facial Droop, Speech Intact / Clear, Moves All Extremities Equally Assessment and Plan - Patient Problems (1) Status post exploratory laparotomy Current Visit: Yes Status: Acute Priority: High Onset Date: 10/07/17 Code(s): Z98.890 - Other specified postprocedural states (2) Small bowel obstruction Current Visit: Yes Status: Resolved Comment: s/p adhesionolysis. Code(s): K56.609 - Unspecified intestinal obstruction, unspecified as to partial versus complete obstruction (3) Hypertension Current Visit: Yes Status: Acute Code(s): I10 - Essential (primary) hypertension (4) Edema Current Visit: Yes Status: Acute Code(s): R60.9 - Edema, unspecified (5) Gouty arthropathy Current Visit: Yes Status: Acute Code(s): M10.9 - Gout, unspecified (6) Respiratory distress Current Visit: Yes Status: Resolved Code(s): R06.00 - Dyspnea, unspecified (7) Depression Current Visit: Yes Status: Acute Code(s): F32.9 - Major depressive disorder , single episode, unspecified Qualifiers: Depression Type: other depression Qualified Code(s): F32.89 - Other specified depressive episodes - Assessment / Plan Additional Assessment/Plan Details: no changes from hospitalist side diet as per surgery electrolytes ordered for tomorrow, will check on them and replace magnesium and potassium as necessary encouraged the patient to walk
[2017-10-09] MEDS: Pantoprazole Inj 40 MG in Normal Saline Flush 10 ML IVP SCH ×2 (16:42→20:56)
[2017-10-10] MEDS: Metoclopramide Inj 10 MG/2 ML VIAL IVP SCH ×4 (01:02→19:59)
[2017-10-10] MEDS: HEPARIN 5000 UNIT/1 ML SUBCUT SCH ×2 (02:13→11:03)
[2017-10-10] MEDS: Acetaminophen 1000mg Inj 1,000 MG/100 ML VIAL IV PRN (02:26)
[2017-10-10 05:23] LABS: BASOPHILS # (AUTO) 0.01 10*3/UL; BASOPHILS % (AUTO) 0.2 % (0-1); EOSINOPHILS # (AUTO) 0.19 10*3/UL; EOSINOPHILS % (AUTO) 3.7 % (0-8); Hematocrit [HCT] 37.4 % (42.0-52.0); Hemoglobin [HGB] 12.2 g/dL (14.0-18.0); LYMPHOCYTES # (AUTO) 1.24 10*3/uL; MEAN CORPUSCULAR HGB CONC 32.6 g/dL (33-37); MEAN CORPUSCULAR VOLUME 94.9 FL (80-90); MONOCYTES # (AUTO) 0.53 10*3/UL (0.3-0.8); MONOCYTES % (AUTO) 10.4 % (5-15); NEUTROPHILS # (AUTO) 3.14 10*3/UL; NEUTROPHILS % (AUTO) 61.3 % (50-80); RED BLOOD COUNT 3.94 10^6/uL (4.70-6.10)
[2017-10-10 05:24] LABS: PLATELET MORPHOLOGY COMMENT NORMAL MORPHOLOGY (NORM); RBC MORPHOLOGY COMMENT NORMAL MORPHOLOGY (NORM); WBC MORPHOLOGY COMMENT NORMAL MORPHOLOGY (NORM)
[2017-10-10] MEDS: D5-1/2NS + 20mEq KCL 1,000 ML PRIMARY IV SCH ×4 (05:25→14:49)
[2017-10-10 05:31] LABS: BLOOD UREA NITROGEN 15 mg/dL (7-22); BUN/CREATININE RATIO 18.75 (6-20); SERUM ALBUMIN 3.3 g/dL (3.5-4.8)
[2017-10-10] MEDS: Pantoprazole Inj 40 MG in Normal Saline Flush 10 ML IVP SCH ×2 (09:49→19:59)
--- NOTE | 2017-10-10 11:47 | PDOC(PROG) ---
Subjective Post Op Day: 3 Pain Management: Tylenol Hopkins Catheter: No Flatus: Yes Diet: NPO Ambulating: Yes Date and Time of Service: 10/10/2017 11:30 AM Interval History: Feels much better without the NG tube and Hopkins catheter. Denies nausea or need to vomit. Has passed some gas. No bowel movement. Incisional abdominal pain only. He is ambulating. He would like to shower. Objective : Data - Labs CBC and BMP: 10/10/17 04:15 10/10/17 04:15 - Vital Signs Vital Signs and I&O: Vital Signs - Last Taken Temperature 97.4 F 10/10/17 11:07 Pulse Rate 76 10/10/17 11:07 Respiratory Rate 18 10/10/17 11:07 Blood Pressure 123/80 10/10/17 11:07 Pulse Ox 94 10/10/17 11:07 Intake and Output (24hr x 4 totals) 10/08/17 10/09/17 10/10/17 10/11/17 05:59 05:59 05:59 05:59 Intake Total 1999 / 1999 1508 / 1508 2649 / 2649 Output Total 1535 / 1535 1050 / 1050 500 / 500 400 / 400 Balance 465 / 465 458 / 458 2149 / 2149 -400 / -400 Objective : Exam - General General Appearance: No Acute Distress, Cooperative - Respiratory Respiratory Exam: Clear to Auscultation - Bilaterally, Breathing Non Labored - Cardiovascular Cardiovascular Exam: No Murmur - GI/Abdominal GI/Abdominal Exam: Soft, Diminished Bowel Sounds (Family normal. Much improved from yesterday.) Additional GI/Abdominal Exam Details: Abdomen is full but soft. The incision looks good. No signs of infection. Incisional tenderness. Bowel tones are improved. - Neurological Neurological Exam: Alert, Oriented x 3 - Psychiatric Psychiatric Exam: Normal Affect, Normal Mood Assessment and Plan - Patient Problems (1) Status post exploratory laparotomy Current Visit: Yes Status: Acute Priority: High Onset Date: 10/07/17 Comment: Surgically doing very well. Start clear liquids slowly. Patient may shower. We'll start to cut back on IV fluids. Patient is having a lower extremity ultrasound later today. If it is negative would consider discontinuing the subcutaneous heparin and starting Lovenox 40 mg a day or just letting the patient ambulate with his SCDs in place when he is in bed. Discussed with Dr. eRilly. Code(s): Z98.890 - Other specified postprocedural states (2) Small bowel obstruction due to adhesions Current Visit: Yes Status: Acute Priority: High Onset Date: ~10/06/17 Comment: Surgically corrected. Improving daily. Code(s): K56.50 - Intestinal adhesions [bands], unspecified as to partial versus complete obstruction
[2017-10-10] MEDS ORDERED: Magnesium Sulfate 2gm (Premix) 2 GM/50 ML BAG IV ONE (12:22)
--- NOTE | 2017-10-10 12:27 | PDOC(PROG) ---
Date and Time of Service: 10/10/2017, 1225 Interval History: No chest pain, no shortness breath. No bowel movements, but passing gas. 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 He has a remote history of smoking but nothing in the last 40 years. Objective : Data - Labs CBC and BMP: 10/10/17 04:15 10/10/17 04:15 Additional Lab Results: 10/10/17 04:15 Calcium 8.0 L Phosphorus 3.1 Magnesium 1.8 Total Bilirubin 0.6 AST 54 ALT 33 Alkaline Phosphatase 54 Total Protein 6.0 L Albumin 3.3 L Globulin 2.7 Objective : Exam - General General Appearance: No Acute Distress, Cooperative Additional General Exam Details: Vital Signs - Last Taken Temperature 97.4 F 10/10/17 11:07 Pulse Rate 76 10/10/17 11:07 Respiratory Rate 18 10/10/17 11:07 Blood Pressure 123/80 10/10/17 11:07 Pulse Ox 94 10/10/17 11:07 - Eye Eye Exam: No Scleral Icterus - ENT ENT Exam: Mucous Membranes Moist - Respiratory Respiratory Exam: Clear to Auscultation - Bilaterally, Breathing Non Labored - Cardiovascular Cardiovascular Exam: RRR, No Murmur, No Clicks, No Gallops, No Rubs, No JVD - GI/Abdominal GI/Abdominal Exam: Non Tender, Non Distended, Soft, Diminished Bowel Sounds - Extremities Extremities Exam: No Clubbing Present, No Edema Present, No Cyanosis Present Additional Extremities Exam Details: I could not elicit Tenderness with my exam, perhaps trace lower extremity edema although that would be a stretch. - Neurological Neurological Exam: Alert, Oriented x 3, Normal Gait, No Facial Droop, Speech Intact / Clear, Moves All Extremities Equally - Psychiatric Psychiatric Exam: Normal Affect, Normal Mood Assessment and Plan - Patient Problems (1) Bilateral calf pain Current Visit: Yes Status: Acute Code(s): M79.661 - Pain in right lower leg ; M79.662 - Pain in left lower leg (2) Status post exploratory laparotomy Current Visit: Yes Status: Acute Priority: High Onset Date: 10/07/17 Code(s): Z98.890 - Other specified postprocedural states (3) Small bowel obstruction Current Visit: Yes Status: Resolved Code(s): K56.609 - Unspecified intestinal obstruction, unspecified as to partial versus complete obstruction (4) Hypertension Current Visit: Yes Status: Acute Code(s): I10 - Essential (primary) hypertension (5) Edema Current Visit: Yes Status: Acute Code(s): R60.9 - Edema, unspecified (6) Gouty arthropathy Current Visit: Yes Status: Acute Code(s): M10.9 - Gout, unspecified (7) Respiratory distress Current Visit: Yes Status: Resolved Code(s): R06.00 - Dyspnea, unspecified (8) Depression Current Visit: Yes Status: Acute Code(s): F32.9 - Major depressive disorder , single episode, unspecified Qualifiers: Depression Type: other depression Qualified Code(s): F32.89 - Other specified depressive episodes (9) History of pulmonary embolism Current Visit: Yes Status: Acute Code(s): Z86.711 - Personal history of pulmonary embolism - Assessment / Plan Additional Assessment/Plan Details: At this point, magnesium is 1.8, I will go ahead and give 2 g of magnesium as this is at the lower limit of normal. Continue medication. It could be that the patient is to seen a lot of fluids and he is got some trace edema that could be bothering his calves, but we will check to make sure there is no DVTs. His tells me that he had a history of a pulmonary embolism postoperatively in the past. Continue DVT prophylaxis, but will switch to Lovenox. If these studies are negative, the patient would benefit from an ankle brachial index to screen for peripheral vascular disease/peripheral arterial disease in the lower extremities as a cause of the calf pain/claudication. Agree with reducing fluids. Discussed with surgery, discussed with patient and his , and the patient and his agree with the plan.
--- NOTE | 2017-10-10 13:41 | DI ---
VENOUS DOPPLER ULTRASOUND OF BOTH LOWER EXTREMITIES, 10/10/2017 1:30 PM: Clinical History: Calf pain. Previous Exam: None at this facility. Technique: 2D real-time imaging is supplemented with color Doppler ultrasound. Compression and augmen tation maneuvers were performed. The deep venous system from the groin to the popliteal fossa for both legs is normal. The greater sap henous veins are also normal. There is edema in the subcutaneous fat in both lower legs. Reading: Negative venous Doppler ultrasound of both lower extremities for deep vein thrombosis.
[2017-10-10] MEDS: ALLOPURINOL 300 MG TABLET PO SCH (13:46)
[2017-10-11] MEDS: Metoclopramide Inj 10 MG/2 ML VIAL IVP SCH ×2 (01:15→07:53)
[2017-10-11] MEDS: D5-1/2NS + 20mEq KCL 1,000 ML PRIMARY IV SCH (05:26)
[2017-10-11] MEDS: ALLOPURINOL 300 MG TABLET PO SCH (09:09)
[2017-10-11] MEDS: Pantoprazole Inj 40 MG in Normal Saline Flush 10 ML IVP SCH (09:09)
[2017-10-11] MEDS: ENOXAPARIN SODIUM 40 MG/0.4 ML SYRINGE SUBCUT SCH (09:27)
--- NOTE | 2017-10-11 12:14 | PDOC(PROG) ---
Date and Time of Service: 10/11/2017, 1210 Interval History: No completes of chest pain, shortness breath, nausea or vomiting. Finally had a loose bowel movement. Abdomen pain is well controlled. Anxious to go home. calf Pain resolved. Ultrasound negative for DVT Objective : Data - Labs CBC and BMP: 10/10/17 04:15 10/10/17 04:15 Objective : Exam - General General Appearance: No Acute Distress, Cooperative Additional General Exam Details: Vital Signs - Last Taken Temperature 97 F 10/11/17 11:07 Pulse Rate 78 10/11/17 11:07 Respiratory Rate 19 10/11/17 11:07 Blood Pressure 145/89 10/11/17 11:07 Pulse Ox 97 10/11/17 11:07 - Eye Eye Exam: No Scleral Icterus - ENT ENT Exam: Mucous Membranes Moist - Respiratory Respiratory Exam: Clear to Auscultation - Bilaterally, Breathing Non Labored - Cardiovascular Cardiovascular Exam: RRR, No Murmur, No Clicks, No Gallops, No Rubs, No JVD - GI/Abdominal GI/Abdominal Exam: Non Tender, Non Distended, Soft, Diminished Bowel Sounds Additional GI/Abdominal Exam Details: Incision is dressed and dressing is dry. - Extremities Extremities Exam: No Clubbing Present, No Edema Present, No Cyanosis Present - Neurological Neurological Exam: Alert, Oriented x 3, Reflexes Normal, Speech Intact / Clear, Moves All Extremities Equally Assessment and Plan - Patient Problems (1) Status post exploratory laparotomy Current Visit: Yes Status: Acute Priority: High Onset Date: 10/07/17 Code(s): Z98.890 - Other specified postprocedural states (2) Small bowel obstruction Current Visit: Yes Status: Resolved Code(s): K56.609 - Unspecified intestinal obstruction, unspecified as to partial versus complete obstruction (3) Hypertension Current Visit: Yes Status: Acute Code(s): I10 - Essential (primary) hypertension (4) Edema Current Visit: Yes Status: Acute Code(s): R60.9 - Edema, unspecified (5) Gouty arthropathy Current Visit: Yes Status: Acute Code(s): M10.9 - Gout, unspecified (6) Respiratory distress Current Visit: Yes Status: Resolved Code(s): R06.00 - Dyspnea, unspecified (7) Depression Current Visit: Yes Status: Acute Code(s): F32.9 - Major depressive disorder , single episode, unspecified Qualifiers: Depression Type: other depression Qualified Code(s): F32.89 - Other specified depressive episodes (8) History of pulmonary embolism Current Visit: Yes Status: Acute Code(s): Z86.711 - Personal history of pulmonary embolism (9) Bilateral calf pain Current Visit: Yes Status: Resolved Code(s): M79.661 - Pain in right lower leg; M79.662 - Pain in left lower leg - Assessment / Plan Additional Assessment/Plan Details: Discussed with surgery, possible discontinuation fluids and advance diet to full liquids. No change in by mouth medications at home. Continue allopurinol for gout prevention. We'll arrange follow-up with Dr. Gallegos, patient's primary care physician, to do some ankle brachial index scores. I doubt that there is claudication or peripheral arterial disease, but with the Pain the patient had with ambulation and it's worth checking. I think we can hold off on labs tomorrow.
--- NOTE | 2017-10-11 12:42 | PDOC(PROG) ---
Subjective Post Op Day: 4 Pain Management: Tylenol Hopkins Catheter: No Flatus: Yes Diet: Clear Liquids Ambulating: Yes Date and Time of Service: 10/11/2017 12:30 PM Interval History: Feeling better every day. Minimal pain. Passing gas regularly. Had a formed bowel movement this morning. It was moderate in size. Small amount of serosanguineous drainage from his incision. Abdominal wall was palpably intact. Patient is ambulating regularly. No trouble voiding. Objective : Data - Labs CBC and BMP: 10/10/17 04:15 10/10/17 04:15 - Vital Signs Vital Signs and I&O: Vital Signs - Last Taken Temperature 97 F 10/11/17 11:07 Pulse Rate 78 10/11/17 11:07 Respiratory Rate 19 10/11/17 11:07 Blood Pressure 145/89 10/11/17 11:07 Pulse Ox 97 10/11/17 11:07 Intake and Output (24hr x 4 totals) 10/09/17 10/10/17 10/11/17 10/12/17 05:59 05:59 05:59 05:59 Intake Total 1508 / 1508 2649 / 2649 1093 / 1093 240 / 240 Output Total 1050 / 1050 500 / 500 2950 / 2950 475 / 475 Balance 458 / 458 2149 / 2149 -1857 / -1857 -235 / -235 Objective : Exam - General General Appearance: No Acute Distress, Cooperative - Respiratory Respiratory Exam: Clear to Auscultation - Bilaterally, Breathing Non Labored - Cardiovascular Cardiovascular Exam: No Murmur - GI/Abdominal GI/Abdominal Exam: Normal Bowel Sounds, Non Distended, Soft Additional GI/Abdominal Exam Details: The incision looks good. Small amount of serosanguineous drainage. Abdominal wall is intact. Incisional tenderness only. - Neurological Neurological Exam: Alert, Oriented x 3 - Psychiatric Psychiatric Exam: Normal Affect, Normal Mood Assessment and Plan - Patient Problems (1) Status post exploratory laparotomy Current Visit: Yes Status: Acute Priority: High Onset Date: 10/07/17 Comment: Recovering nicely. Bowel function has returned. Full liquids today. Soft diet tomorrow and plan discharge after breakfast. Discussed with the patient and his . Code(s): Z98.890 - Other specified postprocedural states (2) Small bowel obstruction due to adhesions Current Visit: Yes Status: Acute Priority: High Onset Date: ~10/06/17 Comment: Surgically corrected. Code(s): K56.50 - Intestinal adhesions [bands], unspecified as to partial versus complete obstruction
[2017-10-11] MEDS ORDERED: VENLAFAXINE XR 75 MG CAP PO ONE (12:44)
[2017-10-12 05:28] VITALS: RESP 16
[2017-10-12] MEDS ORDERED: PANTOPRAZOLE 40 MG TABLET PO SCH (07:00)
[2017-10-12 07:42] LABS: BASOPHILS # (AUTO) 0.01 10*3/UL; BASOPHILS % (AUTO) 0.2 % (0-1); EOSINOPHILS # (AUTO) 0.19 10*3/UL; EOSINOPHILS % (AUTO) 3.3 % (0-8); Hematocrit [HCT] 40.6 % (42.0-52.0); Hemoglobin [HGB] 13.8 g/dL (14.0-18.0); LYMPHOCYTES # (AUTO) 1.34 10*3/uL; MEAN CORPUSCULAR HEMOGLOBIN 30.7 PG (27-31); MEAN CORPUSCULAR VOLUME 90.4 FL (80-90); MEAN PLATELET VOLUME 10.1 FL (7.4-12.2); MONOCYTES # (AUTO) 0.45 10*3/UL (0.3-0.8); MONOCYTES % (AUTO) 7.7 % (5-15); NEUTROPHILS # (AUTO) 3.83 10*3/UL; NEUTROPHILS % (AUTO) 65.6 % (50-80); RED BLOOD COUNT 4.49 10^6/uL (4.70-6.10)
[2017-10-12 07:55] LABS: PLATELET MORPHOLOGY COMMENT NORMAL MORPHOLOGY (NORM); RBC MORPHOLOGY COMMENT NORMAL MORPHOLOGY (NORM); WBC MORPHOLOGY COMMENT NORMAL MORPHOLOGY (NORM)
[2017-10-12 08:07] LABS: BLOOD UREA NITROGEN 14 mg/dL (7-22); BUN/CREATININE RATIO 15.55 (6-20)
[2017-10-12] MEDS: ALLOPURINOL 300 MG TABLET PO SCH (08:59)
[2017-10-12] MEDS ORDERED: VENLAFAXINE XR 75 MG CAP PO SCH (09:00)
[2017-10-12] MEDS: ENOXAPARIN SODIUM 40 MG/0.4 ML SYRINGE SUBCUT SCH (09:11)
--- NOTE | 2017-10-12 10:17 | PDOC(PROG) ---
Subjective Post Op Day: 5 Pain Management: no pain medications. Hopkins Catheter: No Flatus: Yes Diet: Regular Ambulating: Yes Date and Time of Service: 10/12/2017 10 AM Interval History: Patient tolerated full liquids yesterday. He had a soft diet this morning and tolerated it well. He had 4 bowel movements yesterday. The first was moderate and formed. The second started out formed with some looser stool after. The third bowel movement was diarrhea. The forth was a small amount of diarrhea. His stool was sent for C. difficile and was positive. Dr. Reilly and I discussed it. I think it unlikely he has C. difficile colitis. He has had no antibiotics recently other than one dose of preoperative antibiotics. He has had no bowel movement since 6 PM last night despite eating. He is passing gas regularly. We will leave the decision whether to treat or follow him up to Dr. Reilly. Patient denies nausea or vomiting. He has minimal abdominal pain. He has a mild headache. He is ambulating. He is voiding. Objective : Data - Labs CBC and BMP: 10/12/17 07:30 10/12/17 07:30 - Vital Signs Vital Signs and I&O: Vital Signs - Last Taken Temperature 98.1 F 10/12/17 07:45 Pulse Rate 90 10/12/17 07:45 Respiratory Rate 16 10/12/17 07:45 Blood Pressure 153/94 10/12/17 07:45 Pulse Ox 92 10/12/17 07:45 Intake and Output (24hr x 4 totals) 10/10/17 10/11/17 10/12/17 10/13/17 05:59 05:59 05:59 05:59 Intake Total 2649 / 2649 1093 / 1093 1045 / 1045 120 / 120 Output Total 500 / 500 2950 / 2950 1150 / 1150 Balance 2149 / 2149 -1857 / -1857 -105 / -105 120 / 120 Objective : Exam - General General Appearance: No Acute Distress, Cooperative - Respiratory Respiratory Exam: Clear to Auscultation - Bilaterally, Breathing Non Labored - Cardiovascular Cardiovascular Exam: RRR, No Murmur - GI/Abdominal GI/Abdominal Exam: Non Tender, Non Distended, Soft Additional GI/Abdominal Exam Details: The incision looks good. Small amount of serous drainage in the periumbilical area were a staple is loose. Abdominal wall repair is palpably solid. - Neurological Neurological Exam: Alert, Oriented x 3 - Psychiatric Psychiatric Exam: Normal Affect, Normal Mood Assessment and Plan - Patient Problems (1) Status post exploratory laparotomy Current Visit: Yes Status: Acute Priority: High Onset Date: 10/07/17 Comment: Doing very well. Bowel function has returned. Tolerating a regular diet. He is ready to be discharged home for outpatient follow-up. Patient will follow up with Dr. Dubon next Tuesday. Decision whether to treat C. difficile colitis or not per Dr. Reilly. The other option would be to have him call if he has more diarrhea and recheck him at that time. Code(s): Z98.890 - Other specified postprocedural states (2) Small bowel obstruction due to adhesions Current Visit: Yes Status: Acute Priority: High Onset Date: ~10/06/17 Comment: Resolved. Code(s): K56.50 - Intestinal adhesions [bands], unspecified as to partial versus complete obstruction
[2017-10-12 13:32] VITALS: BP 137/87; TEMP 98.3; O2SAT 93
--- NOTE | 2017-10-12 13:55 | DCSUMMARY ---
Hospitalization Summary Admit Date: 10/07/2017 Discharge Date: 10/12/17 Primary Diagnosis:: small bowel obstruction status post adhesion lysis Hospital Course: This very pleasant 61-year-old male that came in with acute abdominal pain and was found to have a small bowel structure. His taken operating room and was found to have adhesions and an adhesion lysis was taken place. Postoperatively , the patient recovered fairly well. His recovery in terms of bowel sounds was a little slower than expected, but as his bowel sounds improved, his diet was advanced, and he was having normal formed bowel movements by discharge. The patient had an episode me of hypotension that appeared to be related to Dilaudid, and was treated aggressively for that. He also recovered well from that. He had diarrhea that appeared at one point. He was tested for C. difficile and it was a positive study but he never had any further diarrhea and had formed stool prior to discharge. He had 1 dose of Mefoxin prior to his surgery surgical prophylaxis, but I am not clear if this is truly C. difficile or if this is a false positive study. As such, I think that as he has had a dose of antibiotics, he is at risk for C. difficile over the next 90 days and given the positive finding here despite formed stool after that positive finding, I think it best to watch cautiously on an out patient basis. I've written a prescription for Flagyl, and if diarrhea develops in the next 90 days, instructed the patient to use this for diarrhea for 10 days as long as stools are formed at that point. He should visit his primary care doctor as well at that point. The patient is to resume his home medications as he was taking him home. We also did have some issues with Pain but admitted DVT scan was negative. I recommended ankle-brachial indexes in the clinic. No completes of chest pain, shortness breath, nausea or vomiting today. He had formed stool today. Assessment and Plan: 1. As per discharge assessments noted 2. Disposition: Patient is discharged home. 3. Condition on discharge, stable and improved. 4. Diet: regular diet 5. Activities: resume normal activities, but no heavy lifting and no return to work until cleared by surgery 6. Follow-Up: 1. [Surgery follow-up 2. Primary care follow-up in one week, consider ankle brachial index 7. Medications at the Time of Discharge: Home Medications Medication Instructions Recorded Confirmed Type Allopurinol 1 tab ORAL QD #90 tab 03/30/17 10/06/17 Rx Venlafaxine HCl [Venlafaxine HCl 1 cap PO DAILY #90 cap 03/30/17 10/06/17 Rx ER] metroNIDAZOLE Tab [Flagyl Tab] 500 mg PO Q8H #30 tab 10/12/17 Rx 8. Time, care, counseling and coordination of care for this discharge is less than 30 minutes. Exam - Vitals Vital Signs: Vital Signs Temperature 98.3 F Temperature Source Oral Pulse Rate [Apical] 88 Pulse Rate [Pulse Oximeter] 98 Pulse Rate 98 Respiratory Rate 16 Blood Pressure [Left Arm] 137/87 Blood Pressure 140/87 Pulse Ox 93 Oxygen Flow Rate 1 Oxygen Delivery Method Room Air Height 6 ft 1 in Weight 242 lb 4.8 oz - General General Appearance: No Acute Distress, Cooperative - Head Head Exam: Normal Inspection, Normocephalic, Atraumatic - Eye Eye Exam: POSITIVE: No Scleral Icterus - ENT ENT Exam: POSITIVE: Mucous Membranes Moist - Respiratory Respiratory Exam: POSITIVE: Clear to Auscultation - Bilaterally, Breathing Non Labored - Cardiovascular Cardiovascular Exam: POSITIVE: RRR, No Murmur, No Clicks, No Gallops, No Rubs, No JVD - GI/Abdominal GI/Abdominal Exam: POSITIVE: Normal Bowel Sounds, Non Tender, Non Distended, Soft - Extremities Extremities Exam: POSITIVE: No Clubbing Present, No Edema Present, No Cyanosis Present - Neurological Neurological Exam: POSITIVE: Alert, Oriented x 3, Normal Gait, No Facial Droop, Speech Intact / Clear, Moves All Extremities Equally - Psychiatric Psychiatric Exam: POSITIVE: Normal Affect, Normal Mood Data Peritnent Studies: Laboratory Results 10/12/17 10/12/17 Range/Units 07:30 07:30 WBC 5.83 (4.8-10.8) 10^3/uL RBC 4.49 L (4.70-6.10) 10^6/uL Hgb 13.8 L (14.0-18.0) g/dL Hct 40.6 L (42.0-52.0) % MCV 90.4 H (80-90) FL MCH 30.7 (27-31) PG MCHC 34.0 (33-37) g/dL RDW Std Deviation 42.0 (39-50) fL RDW Coeff of [place] 13.1 (11.5-14.5) % Plt Count 195 (140-350) 10*3/uL MPV 10.1 (7.4-12.2) FL Immature Gran % (Auto) 0.2 (0-5) % Neut % (Auto) 65.6 (50-80) % Lymph % (Auto) 23.0 (10-50) % [place] % (Auto) 7.7 (5-15) % Eos % (Auto) 3.3 (0-8) % Baso % (Auto) 0.2 (0-1) % Immature Gran # (Auto) 0.01 10*3/UL Neut # (Auto) 3.83 10*3/UL Lymph # (Auto) 1.34 10*3/uL [place] # (Auto) 0.45 (0.3-0.8) 10*3/UL Eos # (Auto) 0.19 10*3/UL Baso # (Auto) 0.01 10*3/UL WBC Morphology Comment Normal morphology (NORM) Plt Morphology Comment Normal morphology (NORM) RBC Morph Comment Normal morphology (NORM) Sodium 142 (135-145) meq/L Potassium 4.4 (3.8-5.2) meq/L Chloride 103 (98-112) meq/L Carbon Dioxide 23 (23-33) meq/L Anion Gap 16 (5-20) BUN 14 (7-22) mg/dL Creatinine 0.9 (0.70-1.50) mg/dL Estimated GFR > 60 (>60 ml/min/1.73m(2)) BUN/Creatinine Ratio 15.55 (6-20) Glucose 123 H (78-110) mg/dL Calculated Osmolality 295.0 H (267-292) mOsm/kg Calcium 9.0 (8.7-10.7) mg/dL Patient Problems - Patient Problem List (1) Status post exploratory laparotomy Current Visit: Yes Status: Acute Onset Date: 10/07/17 Priority: High Code(s): Z98.890 - Other specified postprocedural states Category: Surgical (2) Small bowel obstruction Current Visit: Yes Status: Resolved Code(s): K56.609 - Unspecified intestinal obstruction, unspecified as to partial versus complete obstruction Category: Medical (3) Hypertension Current Visit: Yes Status: Acute Code(s): I10 - Essential (primary) hypertension Category: Medical (4) Edema Current Visit: Yes Status: Acute Code(s): R60.9 - Edema, unspecified Category: Medical (5) Gouty arthropathy Current Visit: Yes Status: Acute Code(s): M10.9 - Gout, unspecified Category: Medical (6) Respiratory distress Current Visit: Yes Status: Resolved Code(s): R06.00 - Dyspnea, unspecified Category: Medical (7) Depression Current Visit: Yes Status: Acute Code(s): F32.9 - Major depressive disorder , single episode, unspecified Qualifiers: Depression Type: other depression Qualified Code(s): F32.89 - Other specified depressive episodes Category: Medical (8) History of pulmonary embolism Current Visit: Yes Status: Acute Code(s): Z86.711 - Personal history of pulmonary embolism Category: Medical (9) Bilateral calf pain Current Visit: Yes Status: Resolved Code(s): M79.661 - Pain in right lower leg; M79.662 - Pain in left lower leg Category: Medical
== END 2017-10-12 14:21 | disposition home or self-care (01) | DRG 337 ==
LOC: ER 21:37 → MED/SURG 10-07 01:43 → OPS 10-07 08:18 → MED/SURG 10-07 12:35
PROVIDERS: ADMIT Internal Medicine; ATTEND Internal Medicine